=== PATIENT | female | born 1990 | race Two or more races ===

== ENCOUNTER 2025-03-20 00:25 | Emergency (ER) | payer OTHER ==
[~2025-03-20] VITALS: Ht 165.1 cm; Wt 77.1 kg
[2025-03-20] MEDS ORDERED: KETOROLAC TROMETHAMINE INJ 30 MG/ML VIAL ONE (02:30)
[2025-03-20 02:43] LABS: PLATELET COUNT (AUTO) 312 K/uL (150-450); RED BLOOD CELL COUNT(AUTO) 4.27 MIL/uL (4.0-5.2); RED CELL DISTRIBUTION WIDTH 18.0 % (11.5-15.0); WHITE BLOOD COUNT (AUTO) 5.4 K/uL (4.3-11.0)
[2025-03-20] MEDS: IV NS 0.9% 1,000 ML IV ONE (02:46)
[2025-03-20 02:58] LABS: CALCIUM, SERUM 8.7 mg/dL (8.5-10.1); CREATININE 0.9 mg/dL (0.6-1.3); SODIUM SERUM 142.0 mmol/L (136-145); UREA NITROGEN, BLOOD 6.0 mg/dL (7-18)
[2025-03-20 03:02] LABS: APPEARANCE,URINE CLEAR (CLEAR); BLOOD, URINE NEGATIVE Ery/uL (NEGATIVE); LEUKOCYTE ESTERASE ,URINE NEGATIVE (NEGATIVE); NITRITE, URINE NEGATIVE (NEGATIVE); UGLUCOSE NEGATIVE (NEGATIVE)
[2025-03-20 03:04] LABS: ALCOHOL, BLOOD 109.0 mg/dL (0-10); ASPARTATE AMINOTRANSFERASE 77.0 U/L (15-37); TOTAL PROTEIN, SERUM 7.7 g/dL (6.4-8.2)
[2025-03-20 03:06] LABS: AMPHETAMINE, URINE NEGATIVE (NEGATIVE); BARBITURATE, URINE NEGATIVE (NEGATIVE); BENZODIAZEPINE, URINE NEGATIVE (NEGATIVE); CANNABINOID, URINE NEGATIVE (NEGATIVE); COCCAINE, URINE NEGATIVE (NEGATIVE); OPIATE, URINE NEGATIVE (NEGATIVE)
[2025-03-20 03:08] LABS: PREGNANCY TEST URINE QUAL NEGATIVE (NEGATIVE)
[2025-03-20] MEDS: KETOROLAC TROMETHAMINE INJ 30 MG/ML VIAL IV ONE (03:15)
[2025-03-20 07:20] VITALS: BP 143/82; TEMP 98.8; O2SAT 98
== END 2025-03-20 07:21 | disposition home or self-care (01) ==
LOC: ER 00:30
DX: S09.8XXA Other specified injuries of head, initial encounter (principal); M54.2 Cervicalgia; Z60.2 Problems related to living alone; Z87.19 Personal history of other diseases of the digestive system; Y04.0XXA Assault by unarmed brawl or fight, initial encounter; Y93.89 Activity, other specified; Y92.89 Other specified places as the place of occurrence of the external cause; Y99.8 Other external cause status
CPT/HCPCS: 99285; 96374; 96361; 70450; 70490; 70486; 85025; 84703; 81003; 36415; 80053; 80320; 80307; J1885; J7030; G0480